=== PATIENT | female | born 1955 | race Caucasian/White ===

== ENCOUNTER 2019-05-01 17:09 | Inpatient (IN) | payer BC ==
[2019-05-01] MEDS ORDERED: Ondansetron 4 MG/2 ML SDV ONE (17:12)
[2019-05-01 17:47] LABS: CHLORIDE,CL 97 mmol/L (98-107); SODIUM,NA 131 mmol/L (136-145)
--- NOTE | 2019-05-01 18:20 | EDM.PDOC ---
ED HPI GENERAL MEDICAL PROBLEM - General Chief Complaint: Trauma Stated Complaint: Fall from horse, head injury Time Seen by Provider: 05/01/19 18:12 Source of Information: Reports: Family (Friend) History Limitations: Reports: No Limitations - History of Present Illness INITIAL COMMENTS - FREE TEXT/NARRATIVE: Patient is a 63-year-old who was brought into the emergency room by private vehicle after suffering a fall from a horse and possibly hitting her head friend states that she fell off a horse on the left side possibly hit her head at that time patient was kept on the floor patient was complaining of dizziness and vision changes today attempted to place her in a horse she fell that she was been a falloff they went ahead and laid her flat and once she was flat and attempted to sit she became nauseous and dizzy and her vision started tunneling so they kept her rangers were called and patient was transported prior to transportation her friend noted involuntary facial movements and her mouth was pulled towards the left side this lasted about 10 seconds then patient was taken on the rangers vehicle back to the Placed back on the ground patient laid in the ground by the About 30 minutes then once she was feeling a little better she was transferred to the pickup and brought into the hospital again as they placed her in the truck her friend went around the truck to check the security of the pickup and trailer once she got into the truck she noticed that Radha had a blank stare and was not responding to verbal stimuli this might lasted 10- 30 seconds but the initial onset patient was walking around the pickup. Her transfer she had a large emesis. At this time we called a trauma code based on the information that we had from her friend and 86 when she arrived to the ER at the time that she arrived she was staggering in with assistance of her friend she was very pale and weak immediately to was evaluated and a CT of the head and neck were ordered were read as negative therefore we continue our trauma now patient feels much better able to answer correctly her [place] Coma Scale on arrival was 15 and her second blood [place] Coma Scale was still 15 at this time we will admit her for observation. Onset: Today Duration: Hour(s):, Improving Location: Reports: Head, Back Quality: Reports: Ache, Pressure, Throbbing Severity: Mild Improves with: Reports: Heat Therapy Worsens with: Reports: Movement Associated Symptoms: Reports: Confusion, Nausea/Vomiting, Weakness - Related Data Allergies Allergy/AdvReac Type Severity Reaction Status Date / Time No Known Allergies Allergy Verified 03/02/14 11:03 Home Meds: Home Meds Aspirin [Halfprin] 81 mg PO DAILY 03/01/14 [History] Cholecalciferol (Vitamin D3) [Vitamin D3] 2,000 unit PO DAILY 03/01/14 [History] Diazepam [Valium] 10 mg PO BEDTIME PRN 03/01/14 [History] Multivitamin [Multivitamins] 1 each PO DAILY 03/01/14 [History] Omeprazole [Prilosec] 20 mg PO DAILY PRN 03/01/14 [History] SUMAtriptan [Imitrex] 100 mg PO PRN 03/01/14 [History] Topiramate [Topamax] 25 mg PO BID 03/01/14 [History] Review of Systems - Review of Systems Review Of Systems: See Below Constitutional: Reports: Weakness Eyes: Reports: Blurred Vision, Pain, Tunnel Vision, Glasses Ears: Reports: No Symptoms Nose: Reports: No Symptoms Mouth/Throat: Reports: No Symptoms Respiratory: Reports: No Symptoms Cardiovascular: Reports: No Symptoms GI/Abdominal: Reports: Nausea, Vomiting Genitourinary: Reports: No Symptoms Musculoskeletal: Reports: Other (Hip pain) Skin: Reports: Bruising (Left hip) Neurological: Reports: Dizziness (Sitting up), Weakness Psychiatric: Reports: No Symptoms ED EXAM, GENERAL - Physical Exam Exam: See Below Exam Limited By: No Limitations General Appearance: Obtunded, Mild Distress Eye Exam: Bilateral Eye: EOMI, PERRL Ears: Normal External Exam, Normal Canal, Hearing Grossly Normal, Normal TMs Ear Exam: Bilateral Ear: Auricle Normal, Canal Normal, TM normal Nose: Normal Inspection, Normal Mucosa, No Blood Throat/Mouth: Normal Inspection, Normal Lips, Normal Teeth, Normal Gums, Normal Oropharynx, Normal Voice, No Airway Compromise Head: Atraumatic, Normocephalic Neck: Normal Inspection, Supple, Non-Tender, Full Range of Motion Respiratory/Chest: No Respiratory Distress, Lungs Clear, Normal Breath Sounds, No Accessory Muscle Use, Chest Non-Tender Cardiovascular: Normal Peripheral Pulses, Regular Rate, Rhythm, No Edema, No Gallop, No JVD, No Murmur, No Rub, Other (History of coronary arterial disease with stenting) GI/Abdominal: Normal Bowel Sounds, Soft (Female) Exam: Deferred Rectal (Female) Exam: Deferred Back Exam: Normal Inspection, Decreased Range of Motion, Muscle Spasm Extremities: Normal Inspection, Normal Range of Motion, Non-Tender, Normal Capillary Refill, No Pedal Edema Neurological: Alert, Oriented, CN II-XII Intact, Normal Cognition, Slow to Respond Psychiatric: Normal Affect Skin Exam: Cool Lymphatic: No Adenopathy Course - Orders/Labs/Meds Orders: Active Orders 24 hr Category Date Time Status Cervical Spine wo Cont [CT] Routine Exams 05/01/19 17:28 Taken Head wo Cont [CT] Routine Exams 05/01/19 17:28 Taken Pelvis 1V or 2V [CR] Routine Exams 05/01/19 17:52 Taken Labs: Laboratory Tests 05/01/19 05/01/19 05/01/19 Range/Units 17:20 17:20 17:20 WBC 18.1 H (4.0-10.2) K/uL RBC 3.70 L (3.77-5.09) M/uL Hgb 11.3 L (11.7-15.5) g/dL Hct 32.6 L (34.0-46.0) % MCV 88.1 (84.0-98.0) fL MCH 30.5 (28.2-33.3) pg MCHC 34.7 (31.7-36.0) g/dL RDW 12.5 (11.2-14.1) % Plt Count 305 (150-350) K/uL Neut % (Auto) 79.5 (45.0-80.0) % Lymph % (Auto) 13.0 (10.0-50.0) % [place] % (Auto) 6.6 (2.0-14.0) % Eos % (Auto) 0.7 (0.0-5.0) % Baso % (Auto) 0.2 (0.0-2.0) % Neut # (Auto) 14.34 H (1.40-7.00) K/uL Lymph # (Auto) 2.35 (0.50-3.50) K/uL [place] # (Auto) 1.20 H (0.00-1.00) K/uL Eos # (Auto) 0.13 (0.00-0.50) K/uL Baso # (Auto) 0.03 (0.00-0.20) K/uL PT (9.5-12.0) SEC INR APTT (21.0-31.3) SEC Sodium 131 L (136-145) mmol/L Potassium 3.0 L (3.5-5.1) mmol/L Chloride 97 L (98-107) mmol/L Carbon Dioxide 21.5 (21.0-32.0) mmol/L BUN 25 H (7-18) mg/dL Creatinine 0.82 (0.51-1.17) mg/dL Est Cr Clr Drug Dosing TNP Estimated GFR (MDRD) > 60 mL/min Glucose 129 H (74-106) mg/dL Lactic Acid 1.4 (0.4-2.0) mmol/L Calcium 9.0 (8.5-10.1) mg/dL Magnesium 1.6 L (1.8-2.4) mg/dL Total Bilirubin 0.3 (0.2-1.0) mg/dL AST 25 (15-37) U/L ALT 31 (12-78) U/L Alkaline Phosphatase 70 (46-116) IU/L Creatine Kinase 204 (26-308) U/L Creatine Kinase Index 1.7 (0.0-2.5) % CK-MB (CK-2) 3.40 (0.00-3.60) ng/mL Total Protein 6.5 (6.4-8.2) g/dL Albumin 3.6 (3.4-5.0) g/dL Amylase 45 (25-115) U/L Lipase 76 (73-393) U/L 05/01/19 Range/Units 17:20 WBC (4.0-10.2) K/uL RBC (3.77-5.09) M/uL Hgb (11.7-15.5) g/dL Hct (34.0-46.0) % MCV (84.0-98.0) fL MCH (28.2-33.3) pg MCHC (31.7-36.0) g/dL RDW (11.2-14.1) % Plt Count (150-350) K/uL Neut % (Auto) (45.0-80.0) % Lymph % (Auto) (10.0-50.0) % [place] % (Auto) (2.0-14.0) % Eos % (Auto) (0.0-5.0) % Baso % (Auto) (0.0-2.0) % Neut # (Auto) (1.40-7.00) K/uL Lymph # (Auto) (0.50-3.50) K/uL [place] # (Auto) (0.00-1.00) K/uL Eos # (Auto) (0.00-0.50) K/uL Baso # (Auto) (0.00-0.20) K/uL PT 11.7 (9.5-12.0) SEC INR 1.1 APTT 23.7 (21.0-31.3) SEC Sodium (136-145) mmol/L Potassium (3.5-5.1) mmol/L Chloride (98-107) mmol/L Carbon Dioxide (21.0-32.0) mmol/L BUN (7-18) mg/dL Creatinine (0.51-1.17) mg/dL Est Cr Clr Drug Dosing Estimated GFR (MDRD) mL/min Glucose (74-106) mg/dL Lactic Acid (0.4-2.0) mmol/L Calcium (8.5-10.1) mg/dL Magnesium (1.8-2.4) mg/dL Total Bilirubin (0.2-1.0) mg/dL AST (15-37) U/L ALT (12-78) U/L Alkaline Phosphatase (46-116) IU/L Creatine Kinase (26-308) U/L Creatine Kinase Index (0.0-2.5) % CK-MB (CK-2) (0.00-3.60) ng/mL Total Protein (6.4-8.2) g/dL Albumin (3.4-5.0) g/dL Amylase (25-115) U/L Lipase (73-393) U/L Departure - Departure Time of Disposition: 19:14 Disposition: Refer to Observation Condition: Fair Clinical Impression: Concussion with brief (less than one hour) loss of consciousness - Discharge Information *PRESCRIPTION DRUG MONITORING PROGRAM REVIEWED*: No *COPY OF PRESCRIPTION DRUG MONITORING REPORT IN PATIENT KORTNEY: No - My Orders Last 24 Hours: My Active Orders 05/01/19 17:28 Cervical Spine wo Cont [CT] Routine Head wo Cont [CT] Routine 05/01/19 17:52 Pelvis 1V or 2V [CR] Routine - Assessment/Plan Last 24 Hours: My Active Orders 05/01/19 17:28 Cervical Spine wo Cont [CT] Routine Head wo Cont [CT] Routine 05/01/19 17:52 Pelvis 1V or 2V [CR] Routine
[2019-05-01] MEDS: Ondansetron 4 MG/2 ML SDV IVPUSH PRN (20:25)
[2019-05-01] MEDS: Sodium Chloride 0.9% 1,000 ML IV SCH (23:46)
[2019-05-02] MEDS: Sodium Chloride 0.9% 1,000 ML IV SCH (01:52)
[2019-05-02] MEDS: Ondansetron 4 MG/2 ML SDV IVPUSH PRN (04:11)
[2019-05-02] MEDS ORDERED: fentaNYL 100 MCG/2 ML SDV IVPUSH ONE (04:12)
--- NOTE | 2019-05-02 04:23 | PCM.DCSUM1 ---
Discharge Summary - Hospital Course Free Text/Narrative:: Patient is a 63-year-old who was brought in from [place] as a trauma code patient had been riding her horse when she fell off her horse landing on her right hip and possibly hitting her head while being transferred it was noted that the patient had 2 syncopal episodes asking about 10 seconds and when she arrived and took 2 people to bring her into the hospital she was complaining of generalized weakness fatigue. CT of the head was obtained which was negative and a cervical spine was negative the pelvic exam was negative and a pelvic x- ray was obtained which was negative patient did have a small hematoma on her left flank towards her buttocks about 5 cm patient was on Plavix so I discussed possibly reversing the Plavix but this was not an option since there is no reversal for Plavix therefore because of the above symptoms we decided to admit her and observe her about 5 hours after transfer to the floor patient wanted to go to the bathroom felt lightheaded and very weak we went ahead and obtain a hemoglobin and I was down to 9.2 so she had about a 2 g drop at this time she was placed back in bed and patient was feeling better but complained of a basketball size hematoma this was larger than before. At around 3:00 in the morning patient wanted to go the bathroom so a commode was placed next to the bed patient again felt weak through her head backwards and complaint of generalized weakness patient was placed in her bed and I was called to evaluate her at this time we repeated the hemoglobin and this was down to 8.[address] was obtained which showed a large hematoma on the left side in the subcutaneous tissue not affecting the muscle at this time it was decided to transfer her to [facility]. We will go ahead and transfuse her 2 units of blood and one unit fresh frozen plasma. On route Diagnosis: Stroke: No - Discharge Data Discharge Date: 05/02/19 Discharge Disposition: DC/Tfer to Acute Hospital 02 Condition: Serious - Discharge Plan *PRESCRIPTION DRUG MONITORING PROGRAM REVIEWED*: No *COPY OF PRESCRIPTION DRUG MONITORING REPORT IN PATIENT KORTNEY: No Home Medications: Home Meds Aspirin [Halfprin] 81 mg PO DAILY 03/01/14 [History] Cholecalciferol (Vitamin D3) [Vitamin D3] 2,000 unit PO DAILY 03/01/14 [History] Diazepam [Valium] 10 mg PO BEDTIME PRN 03/01/14 [History] Multivitamin [Multivitamins] 1 each PO DAILY 03/01/14 [History] Omeprazole [Prilosec] 20 mg PO DAILY PRN 03/01/14 [History] SUMAtriptan [Imitrex] 100 mg PO PRN 03/01/14 [History] Topiramate [Topamax] 25 mg PO BID 03/01/14 [History] Forms: ED Department Discharge Referrals: Ania Ogden NP [Primary Care Provider] - - Discharge Summary/Plan Comment DC Time >30 min.: No Discharge Summary/Plan Comment: Patient will be transferred to [facility]. Patient has history of coronary stenting and has been on Plavix at this time patient will be transfused on route. - General Info Functional Status: Reports: Pain Controlled (Fentanyl order for transfer) - Review of Systems General: Reports: Weakness, Fatigue HEENT: Reports: No Symptoms Pulmonary: Reports: No Symptoms Cardiovascular: Reports: Lightheadedness Gastrointestinal: Reports: No Symptoms Genitourinary: Reports: No Symptoms Musculoskeletal: Reports: Back Pain Skin: Reports: Pallor, Bruising (Buttocks area) Neurological: Reports: Other (Lightheaded and syncopal episode in the commode) Psychiatric: Reports: No Symptoms - Patient Data Vitals - Most Recent: Last Vital Signs Temp 98.3 F 05/02/19 04:00 Pulse 73 05/02/19 04:00 Resp 18 05/02/19 04:00 BP 103/59 L 05/02/19 04:00 Pulse Ox 99 05/02/19 04:00 Weight - Most Recent: 182 lb Lab Results - Last 24 hrs: Laboratory Results - last 24 hr 05/01/19 05/01/19 05/01/19 Range/Units 17:20 17:20 17:20 WBC 18.1 H (4.0-10.2) K/uL RBC 3.70 L (3.77-5.09) M/uL Hgb 11.3 L (11.7-15.5) g/dL Hct 32.6 L (34.0-46.0) % MCV 88.1 (84.0-98.0) fL MCH 30.5 (28.2-33.3) pg MCHC 34.7 (31.7-36.0) g/dL RDW 12.5 (11.2-14.1) % Plt Count 305 (150-350) K/uL Neut % (Auto) 79.5 (45.0-80.0) % Lymph % (Auto) 13.0 (10.0-50.0) % [place] % (Auto) 6.6 (2.0-14.0) % Eos % (Auto) 0.7 (0.0-5.0) % Baso % (Auto) 0.2 (0.0-2.0) % Neut # (Auto) 14.34 H (1.40-7.00) K/uL Lymph # (Auto) 2.35 (0.50-3.50) K/uL [place] # (Auto) 1.20 H (0.00-1.00) K/uL Eos # (Auto) 0.13 (0.00-0.50) K/uL Baso # (Auto) 0.03 (0.00-0.20) K/uL PT (9.5-12.0) SEC INR APTT (21.0-31.3) SEC Sodium 131 L (136-145) mmol/L Potassium 3.0 L (3.5-5.1) mmol/L Chloride 97 L (98-107) mmol/L Carbon Dioxide 21.5 (21.0-32.0) mmol/L BUN 25 H (7-18) mg/dL Creatinine 0.82 (0.51-1.17) mg/dL Est Cr Clr Drug Dosing TNP Estimated GFR (MDRD) > 60 mL/min Glucose 129 H (74-106) mg/dL Lactic Acid 1.4 (0.4-2.0) mmol/L Calcium 9.0 (8.5-10.1) mg/dL Magnesium 1.6 L (1.8-2.4) mg/dL Total Bilirubin 0.3 (0.2-1.0) mg/dL AST 25 (15-37) U/L ALT 31 (12-78) U/L Alkaline Phosphatase 70 (46-116) IU/L Creatine Kinase 204 (26-308) U/L Creatine Kinase Index 1.7 (0.0-2.5) % CK-MB (CK-2) 3.40 (0.00-3.60) ng/mL Total Protein 6.5 (6.4-8.2) g/dL Albumin 3.6 (3.4-5.0) g/dL Amylase 45 (25-115) U/L Lipase 76 (73-393) U/L Blood Type Gel Antibody Screen Crossmatch 05/01/19 05/01/19 05/02/19 Range/Units 17:20 23:34 02:55 WBC 11.6 H 9.9 (4.0-10.2) K/uL RBC 3.01 L 2.67 L (3.77-5.09) M/uL Hgb 9.2 L D 8.2 L (11.7-15.5) g/dL Hct 27.0 L 24.1 L* (34.0-46.0) % MCV 89.7 90.3 (84.0-98.0) fL MCH 30.6 30.7 (28.2-33.3) pg MCHC 34.1 34.0 (31.7-36.0) g/dL RDW 12.4 12.2 (11.2-14.1) % Plt Count 247 237 (150-350) K/uL Neut % (Auto) 83.3 H 77.3 (45.0-80.0) % Lymph % (Auto) 8.5 L 14.2 (10.0-50.0) % [place] % (Auto) 7.9 8.2 (2.0-14.0) % Eos % (Auto) 0.1 0.1 (0.0-5.0) % Baso % (Auto) 0.2 0.2 (0.0-2.0) % Neut # (Auto) 9.65 H 7.65 H (1.40-7.00) K/uL Lymph # (Auto) 0.98 1.41 (0.50-3.50) K/uL [place] # (Auto) 0.92 0.81 (0.00-1.00) K/uL Eos # (Auto) 0.01 0.01 (0.00-0.50) K/uL Baso # (Auto) 0.02 0.02 (0.00-0.20) K/uL PT 11.7 (9.5-12.0) SEC INR 1.1 APTT 23.7 (21.0-31.3) SEC Sodium (136-145) mmol/L Potassium (3.5-5.1) mmol/L Chloride (98-107) mmol/L Carbon Dioxide (21.0-32.0) mmol/L BUN (7-18) mg/dL Creatinine (0.51-1.17) mg/dL Est Cr Clr Drug Dosing Estimated GFR (MDRD) mL/min Glucose (74-106) mg/dL Lactic Acid (0.4-2.0) mmol/L Calcium (8.5-10.1) mg/dL Magnesium (1.8-2.4) mg/dL Total Bilirubin (0.2-1.0) mg/dL AST (15-37) U/L ALT (12-78) U/L Alkaline Phosphatase (46-116) IU/L Creatine Kinase (26-308) U/L Creatine Kinase Index (0.0-2.5) % CK-MB (CK-2) (0.00-3.60) ng/mL Total Protein (6.4-8.2) g/dL Albumin (3.4-5.0) g/dL Amylase (25-115) U/L Lipase (73-393) U/L Blood Type Gel Antibody Screen Crossmatch 05/02/19 Range/Units 02:55 WBC (4.0-10.2) K/uL RBC (3.77-5.09) M/uL Hgb (11.7-15.5) g/dL Hct (34.0-46.0) % MCV (84.0-98.0) fL MCH (28.2-33.3) pg MCHC (31.7-36.0) g/dL RDW (11.2-14.1) % Plt Count (150-350) K/uL Neut % (Auto) (45.0-80.0) % Lymph % (Auto) (10.0-50.0) % [place] % (Auto) (2.0-14.0) % Eos % (Auto) (0.0-5.0) % Baso % (Auto) (0.0-2.0) % Neut # (Auto) (1.40-7.00) K/uL Lymph # (Auto) (0.50-3.50) K/uL [place] # (Auto) (0.00-1.00) K/uL Eos # (Auto) (0.00-0.50) K/uL Baso # (Auto) (0.00-0.20) K/uL PT (9.5-12.0) SEC INR APTT (21.0-31.3) SEC Sodium (136-145) mmol/L Potassium (3.5-5.1) mmol/L Chloride (98-107) mmol/L Carbon Dioxide (21.0-32.0) mmol/L BUN (7-18) mg/dL Creatinine (0.51-1.17) mg/dL Est Cr Clr Drug Dosing Estimated GFR (MDRD) mL/min Glucose (74-106) mg/dL Lactic Acid (0.4-2.0) mmol/L Calcium (8.5-10.1) mg/dL Magnesium (1.8-2.4) mg/dL Total Bilirubin (0.2-1.0) mg/dL AST (15-37) U/L ALT (12-78) U/L Alkaline Phosphatase (46-116) IU/L Creatine Kinase (26-308) U/L Creatine Kinase Index (0.0-2.5) % CK-MB (CK-2) (0.00-3.60) ng/mL Total Protein (6.4-8.2) g/dL Albumin (3.4-5.0) g/dL Amylase (25-115) U/L Lipase (73-393) U/L Blood Type A POSITIVE Gel Antibody Screen Negative Crossmatch See Detail Med Orders - Current: Current Medications Sodium Chloride (Normal Saline) 1,000 mls @ 250 mls/hr IV [facility] Last Admin: 05/02/19 01:52 Dose: 250 mls/hr Ondansetron HCl (Zofran) 4 mg IVPUSH Q4H PRN PRN Reason: Nausea/Vomiting Last Admin: 05/01/19 20:25 Dose: 4 mg - Exam General: Reports: Alert, Oriented, Cooperative, Mild Distress HEENT: Reports: Pupils Equal, Pupils Reactive, EOMI, Mucous Membr. Moist/[place] Neck: Reports: Supple Cardiovascular: Reports: Regular Rate, Regular Rhythm GI/Abdominal Exam: Normal Bowel Sounds, Soft, Non-Tender, No Organomegaly, No Distention, No Abnormal Bruit, No Mass, Pelvis Stable Back Exam: Reports: Decreased Range of Motion, Paraspinal Tenderness (Left side) Extremities: Normal Inspection, Normal Range of Motion, Non-Tender, No Pedal Edema, Normal Capillary Refill Neurological: Reports: No New Focal Deficit Psy/Mental Status: Reports: Alert, Normal Affect, Normal Mood
== END 2019-05-02 04:10 | disposition home or self-care (01) | DRG 384 ==
LOC: LL.ED 17:09 → UNDOADMOB 19:02 → LL.MS 19:02 → UNDOADMOB 19:07 → LL.MS 19:07 → UNDODISOB 05-02 04:50
PROVIDERS: ADMIT Family Medicine; ATTEND Family Medicine
PROC: 30233N1 Transfusion of Nonautologous Red Blood Cells into Peripheral Vein, Percutaneous Approach (ICD-10-PCS; principal; 2019-05-02)
PROC: 30233L1 Transfusion of Nonautologous Fresh Plasma into Peripheral Vein, Percutaneous Approach (ICD-10-PCS; 2019-05-02)
DX: S30.0XXA Contusion of lower back and pelvis, initial encounter (principal); R40.2413 Glasgow coma scale score 13-15, at hospital admission; V80.010A Animal-rider injured by fall from or being thrown from horse in noncollision accident, initial encounter; Z79.82 Long term (current) use of aspirin; Z79.899 Other long term (current) drug therapy; Y93.52 Activity, horseback riding
CPT/HCPCS: 36415; 70450; 72125; 72170; 74176; 80053; 82150; 82550; 82553; 83605; 83690; 83735; 85025; 85610; 85730; 86850; 86900; 86901; 86920; 86922; 96361; 96374; 99285-25; G0390; J2405; J7030; P9016; P9017

== ENCOUNTER 2020-03-22 07:09 | Emergency (ER) | payer BC, OTHER ==
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
[2020-03-22 08:10] LABS: CHLORIDE,CL 101 mmol/L (98-107); SODIUM,NA 134 mmol/L (136-145)
== END 2020-03-22 08:38 | disposition home or self-care (01) ==
LOC: LL.ED 07:09
DX: S80.11XA Contusion of right lower leg, initial encounter (principal); I25.10 Atherosclerotic heart disease of native coronary artery without angina pectoris; E78.2 Mixed hyperlipidemia; D50.8 Other iron deficiency anemias; E78.00 Pure hypercholesterolemia, unspecified; K21.9 Gastro-esophageal reflux disease without esophagitis; M19.90 Unspecified osteoarthritis, unspecified site; E11.9 Type 2 diabetes mellitus without complications; Z95.5 Presence of coronary angioplasty implant and graft; Z79.02 Long term (current) use of antithrombotics/antiplatelets; Z88.8 Allergy status to other drugs, medicaments and biological substances; Z79.84 Long term (current) use of oral hypoglycemic drugs; W55.12XA Struck by horse, initial encounter; Y92.009 Unspecified place in unspecified non-institutional (private) residence as the place of occurrence of the external cause
CPT/HCPCS: 36415; 73590-RT; 80053; 82550; 82553; 85025; 99283-25

== ENCOUNTER 2020-03-26 20:02 | Emergency (ER) | payer OTHER ==
[2020-03-26] MEDS ORDERED: Ondansetron 4 MG/2 ML SDV IVPUSH ONE ×2 (20:28→21:47)
[2020-03-26] MEDS ORDERED: Morphine 2 MG/ML SYRINGE IVPUSH ONE ×2 (20:29→20:57)
[2020-03-26 20:45] LABS: CHLORIDE,CL 95 mmol/L (98-107); SODIUM,NA 131 mmol/L (136-145)
[2020-03-26] MEDS ORDERED: Sodium Chloride 0.9% 10 ML Syringe FLUSH PRN (20:47)
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
[2020-03-26] MEDS ORDERED: Morphine 4 MG/ML VIAL IVPUSH ONE (21:47)
== END 2020-03-26 22:10 ==
LOC: LL.ED 20:02
DX: S82.831D Other fracture of upper and lower end of right fibula, subsequent encounter for closed fracture with routine healing (principal); I25.10 Atherosclerotic heart disease of native coronary artery without angina pectoris; E78.00 Pure hypercholesterolemia, unspecified; K21.9 Gastro-esophageal reflux disease without esophagitis; M19.90 Unspecified osteoarthritis, unspecified site; E11.9 Type 2 diabetes mellitus without complications; M81.0 Age-related osteoporosis without current pathological fracture; Z85.3 Personal history of malignant neoplasm of breast; Z90.89 Acquired absence of other organs; Z88.8 Allergy status to other drugs, medicaments and biological substances; Z79.899 Other long term (current) drug therapy; Z79.84 Long term (current) use of oral hypoglycemic drugs; Z90.49 Acquired absence of other specified parts of digestive tract; W50.1XXD Accidental kick by another person, subsequent encounter
CPT/HCPCS: 36415; 73700-RT; 80053; 82550; 85025; 85379; 96374; 96375; 96376; 99285-25; J2270; J2405